=== PATIENT | male | born 1940 | race Caucasian/White ===

== ENCOUNTER 2018-03-07 11:30 | Emergency (ER) | payer BC, MEDICARE ==
[2018-03-07] MEDS ORDERED: ERYTHROMYCIN OPTH OINT 3.5GM OPTH ONE (13:32)
--- NOTE | 2018-03-07 13:41 | Emergency Department Record ---
History of Present Illness - General Chief Complaint: Laceration(s) Stated Complaint: FELL LAC ON LEFT SIDE OF FACE Time Seen by Provider: 03/07/18 13:06 Source: Patient, Family Mode of Arrival: Ambulatory Limitations: Altered mental status - History of Present Illness Initial Commments: Per daughters x 2 in department pt fell from cough and has laceration lateral to left eye. No otehr reported/noted injury. Normal behavior per family. Hx of dementia. -: Unknown Location: Face (lrft upper cheek ) Place: Home Context: Accidental, Fall Associated Symptoms: None - Cherri Coma Scale Eye Response: (4) Open spontaneously Motor Response: (6) Obeys commands Verbal Response: (5) Oriented Cherri Total: 15 - Related Data Hx Tetanus Toxoid Vaccination: No Home Medications Medication Instructions Recorded Confirmed Last Taken Bupropion HCl [Bupropion HCl Sr] 100 mg PO DAILY 03/07/18 03/07/18 03/06/18 Ibuprofen [Advil Liqui-Gels] 200 mg PO ASDIR 03/07/18 03/07/18 03/06/18 Meloxicam [Mobic] 15 mg PO DAILY 03/07/18 03/07/18 03/06/18 Tamsulosin HCl [Flomax] 0.4 mg PO DAILY 03/07/18 03/07/18 03/06/18 Previous Rx's Medication Instructions Recorded Aspirin Enteric-Coated [Ecotrin 81 mg PO DAILY #30 tabec 06/04/15 (EC)] Ergocalciferol (Vitamin D2) 50,000 unit PO WEEKLY #52 capsule 06/04/15 [Vitamin D2] Allergies Allergy/AdvReac Type Severity Reaction Status Date / Time No Known Drug Allergies Allergy Verified 03/07/18 12:27 Travel Screening - Travel/Exposure Within Last 30 Days Have you traveled within the last 30 days?: No - Travel/Exposure Within Last Year Have you traveled outside the [place] in the last year?: No - Additonal Travel Details Have you been exposed to anyone with a communicable illness?: No - Travel Symptoms Symptom Screening: None Review of Systems ROS unobtainable: Due to mental status (ROS per daughters pt with Dementia) Constitutional: Denies: Chills, Fever Eyes: Denies: Eye pain ENT: Denies: Congestion Respiratory: Denies: Cough Cardiovascular: Denies: Chest pain Endocrine: Denies: Fatigue Gastrointestinal: Denies: Abdominal pain Musculoskeletal: Denies: Back pain Skin: Denies: Bruising Neurological: Denies: Abnormal gait Past Medical History - SOCIAL HISTORY Smoking Status: Current every day smoker Alcohol Use: None Drug Use: None - RESPIRATORY Hx Respiratory Disorders: No - CARDIOVASCULAR Hx Cardio Disorders: No - NEURO Hx Neuro Disorders: Yes Hx Headaches: Yes Comment:: head injury 1970 - GI Hx GI Disorders: No - Hx Genitourinary Disorders: No - ENDOCRINE Hx Endocrine Disorders: No - MUSCULOSKELETAL Hx Musculoskeletal Disorders: Yes Hx Arthritis: Yes - PSYCH Hx Psych Problems: Yes Hx Anxiety: Yes (per daughter may have undiagnosed issues) Hx Behavior Problems: Yes Hx Depression: Yes - HEMATOLOGY/ONCOLOGY Hx Hematology/Oncology Disorders: Yes Hx Cancer: Yes (Basal cell on left cheek) Family Medical History Any Significant Family History?: No Hx Alcohol Use: Father Hx Anxiety: Mother, Children *Anxiety Comment: mother committed suicide 1944/son suicide 2007 Hx Cancer: Brother/Sister *Dementia Comment: family is unsure Hx Depression: Mother *Depression Comment: Mother commited suicide in 1944 Hx Heart Disease: Father *Heart Comment: Father passes away 1975 Physical Exam - General General Appearance: Alert, Cooperative, No acute distress Limitations: Altered mental status - Head Head exam detail: Laceration (Skin avulsion to the left upper cheek later to eye. Superficial 1.5 x 2 cm. No deep structures, no FB. No pain to palpation of zygoma or mark orbital. ) - Eye Eye exam: PERRL, EOMI (small pupils reactive) - ENT ENT exam: Mucous membranes moist, Normal external ear exam, Normal orophraynx - Neck Neck exam: Normal inspection. negative: Tenderness - Respiratory Respiratory exam: Normal lung sounds bilaterally. negative: Wheezes - Cardiovascular Cardiovascular Exam: Regular rate, Normal rhythm - GI/Abdominal GI/Abdominal exam: Soft, Normal bowel sounds. negative: Tenderness - Extremities Extremities exam: Normal inspection. negative: Joint swelling, Tenderness - Back Back exam: Reports: Normal inspection. Denies: Paraspinal tenderness - Neurological Neurological exam: Alert, Normal gait - Psychiatric Psychiatric exam: negative: Anxious - Skin Type of lesion: Laceration Course Vital Signs 03/07/18 12:18 Temperature 97.3 F L Pulse Rate 84 Respiratory 18 Rate Blood Pressure 142/82 Pulse Ox 96 - Reevaluation(s) Reevaluation #1: 03/07/18 13:[address] done. Wound superficial avulsion and unable to repair. Will clean and debride area. Daughters present. Reevaluation #2: 03/07/18 14:21 PROCEDURE: avulsion to left check cleaned with saline and small area debrided. tolerated well. AB oint Erythro phtho to skin and dressed. Medical Decision Making - Data Complexity MDM Data: X-Ray Ordered and/or Reviewed - Radiology Data Radiology results: Report reviewed Disposition Disposition: Discharge Clinical Impression: Fall, Avulsion of skin of face Disposition: Home, Self-Care Condition: (2) Stable Instructions: Skin Avulsion (ED) Additional Instructions: Abtibiotic ointment 3 times a day - provided. Forms: Patient Portal Access Quality - Quality Measures Quality Measures: N/A - Blood Pressure Screening Does Patient Have Any of the Following: No Blood Pressure Classification: Pre-Hypertensive BP Reading Systolic Measurement: 142 Diastolic Measurement: 82 Screening for High Blood Pressure: < Pre-Hypertensive BP, F/U Documented > [ [id number]] Pre-Hypertensive Follow-up Interventions: Follow-up with rescreen every year.
--- NOTE | 2018-03-10 09:29 | CT SCAN REPORT ---
DATE: 03/07/2018 at 1:37 p.m. EXAM: HEAD CT WITHOUT CONTRAST. HISTORY: Patient fell and hit head on night stand with laceration near left eye. TECHNIQUE: Axial CT scan of the head performed without intravenous contrast. COMPARISON: Head CT dated 05/31/2015. ENCOUNTER: Initial FINDINGS: No definite acute intracranial hemorrhage identified. No focal mass effect or midline shift evident. Moderate generalized atrophy with chronic- appearing deep white matter changes as before, nonspecific but likely representing some chronic small-vessel deep white matter ischemic disease. No definite acute infarct or intracranial mass lesion is seen. Deviation of the nasal septum to the right. No depressed calvarial fracture is evident. IMPRESSION: 1. GENERALIZED ATROPHY WITH CHRONIC-APPEARING DEEP WHITE MATTER CHANGES. 2. NO DEFINITE ACUTE INTRACRANIAL HEMORRHAGE OR FOCAL MASS EFFECT IDENTIFIED. JOB NUMBER: [id number] [facility]
== END 2018-03-07 14:41 | disposition home or self-care (01) ==
LOC: ER 11:30
DX: S01.412A Laceration without foreign body of left cheek and temporomandibular area, initial encounter (principal); S09.90XA Unspecified injury of head, initial encounter; F17.210 Nicotine dependence, cigarettes, uncomplicated; W08.XXXA Fall from other furniture, initial encounter; Y92.009 Unspecified place in unspecified non-institutional (private) residence as the place of occurrence of the external cause; F03.90 Unspecified dementia, unspecified severity, without behavioral disturbance, psychotic disturbance, mood disturbance, and anxiety
CPT/HCPCS: 70450; 99283; 99284